=== PATIENT | male | born 1960 | race Caucasian/White ===

== ENCOUNTER → 2017-11-25 | Outpatient (CLI) | payer OTHER | END | disposition home or self-care (01) | LOC: KCIC CT 12:45 | DX: I25.10 Atherosclerotic heart disease of native coronary artery without angina pectoris (principal); R06.02 Shortness of breath; Z87.891 Personal history of nicotine dependence | CPT/HCPCS: 71250 ==

== ENCOUNTER → 2018-12-09 | Outpatient (CLI) | payer OTHER ==
--- NOTE | 2018-12-09 13:27 | RAD ---
EXAM: Chest CT without intravenous contrast. HISTORY: Cigarette smoking history. TECHNIQUE: Computed tomographic images of the chest were obtained without contrast. Multiplanar reformatting was performed. *One or more of the following individualized dose reduction techniques were utilized for this examination: 1. Automated exposure control. 2. Adjustment of the mA and/or kV according to patient size. 3. Use of iterative reconstruction technique. COMPARISON: 11/25/2017. FINDINGS: There is no pneumothorax or pleural effusion. There is mild emphysema with right apical subpleural bleb formation. There is no infiltrate. There is minimal posterior dependent and basilar atelectasis. There is no suspicious pulmonary nodule. The heart is normal in size. The aorta is normal in caliber. There is stable prominent mediastinal lymph nodes, likely physiologic or reactive in etiology. There is coronary artery atherosclerosis. There is a stable 1.3 cm nodule within the left adrenal gland, the attenuation which favors an adenoma. There is no suspicious osseous lesion. IMPRESSION: 1. Mild emphysema. 2. No acute thoracic finding or evidence of thoracic neoplasm. 3. Stable small left adrenal nodule, the attenuation which favors a benign adenoma. Electronically signed by: Swapna Strong MD (12/09/2018 1:24 PM) [place] [id number]
== END | disposition home or self-care (01) ==
LOC: CT 10:39
PROVIDERS: ATTEND Internal Medicine Pulmonary Disease
DX: J43.9 Emphysema, unspecified (principal); J98.11 Atelectasis; I25.10 Atherosclerotic heart disease of native coronary artery without angina pectoris; E27.8 Other specified disorders of adrenal gland; Z87.891 Personal history of nicotine dependence
CPT/HCPCS: 71250